=== PATIENT | female | born 1995 | race Caucasian/White ===

== ENCOUNTER 2021-05-12 20:58 | Emergency (ER) | payer OTHER ==
[~2021-05-12] VITALS: Ht 165.1 cm; Wt 57.6 kg
== END 2021-05-12 21:28 | disposition home or self-care (01) ==
LOC: ER 20:58
DX: T40.1X1A Poisoning by heroin, accidental (unintentional), initial encounter (principal); R51.9 Headache, unspecified
CPT/HCPCS: 96374; 99284-25; J1885